=== PATIENT | female | born 1995 ===

== ENCOUNTER 2022-01-17 08:51 | Inpatient (IN) | payer OTHER ==
[~2022-01-17] VITALS: Ht 160 cm; Wt 88.9 kg
[2022-01-17] MEDS ORDERED: OXYTOCIN/0.9 % SODIUM CHLORIDE 1,000 ML IV SCH (10:15)
[2022-01-17] MEDS ORDERED: NALBUPHINE HCL 10 MG/ML AMP IVP PRN (10:15)
[2022-01-17] MEDS ORDERED: TERBUTALINE SULFATE 1 MG/ML VIAL SUBCUT ONE (10:15)
[2022-01-17 10:23] VITALS: BP_SYST 109
[2022-01-17] MEDS: MISOPROSTOL 100 MCG TABLET (CYTOTEC) VG PRN ×2 (11:02→15:07)
[2022-01-17 11:36] LABS: BASOPHILS % (AUTO) 0.3 % (0.0-2.0); EOSINOPHILS % (AUTO) 0.5 % (0.0-4.0); HEMATOCRIT 29.3 % (36-48); HEMOGLOBIN 9.8 g/dL (12.0-16.0); LYMPHOCYTES # (AUTO) 2.4 K/uL (1.0-5.5); LYMPHOCYTES % (AUTO) 28.4 % (20.5-51.5); MEAN CORPUSCULAR HEMOGLOBIN 27 pg (27-31); MEAN CORPUSCULAR HGB CONC 34 % (32-36); MEAN CORPUSCULAR VOLUME 81 fL (79.0-98.0); MONOCYTES # (AUTO) 0.5 K/uL (0.0-1.0); MONOCYTES % (AUTO) 5.8 % (1.7-9.3); NEUTROPHILS # (AUTO) 5.6 K/uL (1.8-7.7); PLATELET COUNT (AUTO) 277 K/uL (130-430); RED BLOOD CELL COUNT(AUTO) 3.63 MIL/uL (4.2-6.2); RED CELL DISTRIBUTION WIDTH 13.8 % (9.0-15.0); WHITE BLOOD COUNT (AUTO) 8.6 K/uL (4.8-10.8)
[2022-01-17] MEDS ORDERED: fentaNYL CITRATE/PF 100 MCG/2 ML AMP ONE (19:56)
[2022-01-17] MEDS ORDERED: ROPIVACAINE HCL/PF 0.2% 200 ML ONE (19:56)
[2022-01-17] MEDS ORDERED: LR 500 ML IV ONE (20:30)
[2022-01-17] MEDS ORDERED: FENT2mCg/mL-ROPIVA0.2%/NS EPID 200 ML EP SCH (20:30)
[2022-01-17] MEDS: LR 1,000 ML IV SCH (20:42)
[2022-01-18] MEDS: LR 1,000 ML IV SCH ×4 (01:19→16:04)
[2022-01-18] MEDS ORDERED: fentaNYL CITRATE/PF 100 MCG/2 ML AMP ONE (09:02)
[2022-01-18] MEDS ORDERED: ROPIVACAINE HCL/PF 0.2% 200 ML ONE (09:02)
[2022-01-18] MEDS ORDERED: LIGHT MINERAL OIL 10 ML VIAL MC ONE (19:36)
[2022-01-18] MEDS ORDERED: NALOXONE HCL 0.4 MG/ML AMP (NARCAN) ONE (19:36)
[2022-01-18] MEDS ORDERED: LIDOCAINE PF 1% 30ML(POUR BTL) INJ ONE (19:36)
[2022-01-18] MEDS ORDERED: ANUSOL 1 EA SUPP.RECT (PREPARATION H) RC PRN (21:15)
[2022-01-18] MEDS ORDERED: HYDROCORTISONE 0.5% CREAM 28.4 GM CREAM.GM. TP PRN (21:15)
[2022-01-18] MEDS ORDERED: DIPHTH,PERTUSS(ACELL),TET VAC 0.5 ML VIAL (Tdap) I.M. PRN (21:15)
[2022-01-18] MEDS ORDERED: DERMOPLAST SPRAY TP PRN (21:15)
[2022-01-18] MEDS ORDERED: TEMAZEPAM 15 MG CAPSULE PO PRN (21:15)
[2022-01-18] MEDS ORDERED: WITCH HAZEL LEAF 1 MED.PAD MED.PAD TP PRN (21:15)
[2022-01-18] MEDS ORDERED: LANOLIN 7 GM OINT. TP PRN (21:15)
[2022-01-18] MEDS ORDERED: OXYTOCIN/0.9 % SODIUM CHLORIDE 1,000 ML IV SCH (21:15)
[2022-01-18] MEDS ORDERED: MEASLES,MUMPS&RUBELLA VACC/PF 12500 UNIT/0.5 ML VIAL SUBQ PRN (21:15)
[2022-01-18] MEDS ORDERED: OXYTOCIN/0.9 % SODIUM CHLORIDE 1,000 ML IV ONE (21:15)
[2022-01-18] MEDS ORDERED: RHO(D) IMMUNE GLOBULIN/MALTOSE 1500 UNITS/1.3 ML (WINHRO) IM PRN (21:15)
[2022-01-18] MEDS: OXYCODONE/ACETAMINOPHEN 5-325 TABLET PO PRN (22:10)
[2022-01-19] MEDS ORDERED: ONDANSETRON HCL 4 MG/2 ML VIAL IVP PRN (00:15)
[2022-01-19] MEDS: OXYCODONE/ACETAMINOPHEN 5-325 TABLET PO PRN (05:27)
[2022-01-19] MEDS: IBUPROFEN 600 MG TABLET PO SCH ×4 (05:28→18:14)
[2022-01-19 07:33] LABS: HEMOGLOBIN 8.3 g/dL (12.0-16.0)
[2022-01-19] MEDS: DOCUSATE SODIUM 100 MG CAPSULE PO SCH (09:26)
[2022-01-19] MEDS ORDERED: SENNOSIDES/DOCUSATE SODIUM 1 TAB TABLET(SENOKOT-S) PO SCH (21:00)
[2022-01-20] MEDS: IBUPROFEN 600 MG TABLET PO SCH ×2 (00:10→05:36)
[2022-01-20] MEDS: DOCUSATE SODIUM 100 MG CAPSULE PO SCH (09:23)
[2022-01-21 18:06] LABS: FTA-Ab (T PALLIDUM) Non Reactive (Non Reactive)
== END 2022-01-20 11:40 | disposition home or self-care (01) | DRG 560 ==
LOC: SPU 08:51
PROVIDERS: ADMIT Obstetrics & Gynecology; ATTEND Obstetrics & Gynecology
PROC: 10E0XZZ Delivery of Products of Conception, External Approach (ICD-10-PCS; principal; 2022-01-18)
PROC: 3E0P7VZ Introduction of Hormone into Female Reproductive, Via Natural or Artificial Opening (ICD-10-PCS; 2022-01-18)
PROC: 3E0R3BZ Introduction of Anesthetic Agent into Spinal Canal, Percutaneous Approach (ICD-10-PCS; 2022-01-18)
PROC: 00HU33Z Insertion of Infusion Device into Spinal Canal, Percutaneous Approach (ICD-10-PCS; 2022-01-18)
DX: O69.81X0 Labor and delivery complicated by cord around neck, without compression, not applicable or unspecified (principal); Z37.0 Single live birth; D62 Acute posthemorrhagic anemia; Z20.822 Contact with and (suspected) exposure to COVID-19; Z3A.39 39 weeks gestation of pregnancy
CPT/HCPCS: 36415; 81002; 85018; 85025; 86592; 86780; 86886; 86900; 86901; 94760; J2001; J2310; J2590; J3010